=== PATIENT | male | born 1940 | race African-American/Black ===

== ENCOUNTER 2016-11-10 11:47 | Emergency (ER) | payer MEDICARE, BC ==
[2016-11-10 12:01] VITALS: BP 172/80
[2016-11-10] MEDS ORDERED: Ibuprofen TAB* 600 MG PO ONE (12:20)
--- NOTE | 2016-11-10 12:26 | UC ---
Throat Pain/Nasal Pepito HPI - HPI Summary HPI Summary: 76 year old male with complaints of chill, sore throat and body aches x 4 day. the sore throat became worse last evening. He is concerned about strep throat. He has not taken anything for his symptoms - History of Current Complaint Chief Complaint: UCRespiratory Stated Complaint: SORE THROAT BODYACHES Time Seen by Provider: 11/10/16 11:56 Hx Obtained From: Patient Onset/Duration: Sudden Onset, Lasting Days - 1, Still Present Severity: Moderate Pain Scale Used: 0-10 Numeric - 4 Cough: Nonproductive - occasional Associated Signs & Symptoms: Positive: Dysphagia, Nasal Discharge - mild, Other - chills. Negative: FB Sensation, Drooling, Wheezing, Hoarseness, Sinus Discomfort, Fever, Vomiting - Epiglottits Risk Factors Epiglottis Risk Factors: Negative - Allergies/Home Medications Allergies/Adverse Reactions: Allergies Allergy/AdvReac Type Severity Reaction Status Date / Time No Known Allergies Allergy Verified 11/10/16 11:56 Home Medications: Home Medications Meclizine TAB* [Antivert 12.5 TAB*] 11/10/16 [History] PMH/Surg Hx/FS Hx/Imm Hx Previously Healthy: Yes Endocrine History Of: Denies: Diabetes, Thyroid Disease Cardiovascular History Of: Reports: Hypertension - ON DAILY MEDS Denies: Cardiac Disorders, Pacemaker/ICD Respiratory History Of: Denies: COPD, Asthma GI/ History Of: Denies: Ulcer, Renal Disease - Surgical History Surgical History: Yes Surgery Procedure, Year, and Place: 2006 PROSTATE RESECTION STRONG. RIGHT KNEE [facility]. 1953 APPENDECTOMY. Lt & Rt CARPAL TUNNEL [facility] - Family History Known Family History: Positive: Hypertension Negative: Diabetes - Social History Occupation: Retired Lives: With Family Alcohol Use: None Alcohol Amount: 1-2 drinks daily Substance Use Type: None Smoking Status (MU): Former Smoker Type: Cigarettes Amount Used/How Often: LESS THEN 1PPD ON & OFF 10 YRS Have You Smoked in the Last Year: No When Did the Patient Quit Smoking/Using Tobacco: 1974 Review of Systems Constitutional: Chills Skin: Negative Eyes: Negative ENT: Sore Throat Respiratory: Cough - occasional Cardiovascular: Negative Gastrointestinal: Negative Genitourinary: Negative Motor: Negative Neurovascular: Negative Musculoskeletal: Negative Neurological: Negative Psychological: Negative All Other Systems Reviewed And Are Negative: Yes Physical Exam Triage Information Reviewed: Yes Appearance: No Pain Distress, Well-Nourished, Ill-Appearing - mild Vital Signs: Initial Vital Signs Temp 98.8 F 11/10/16 11:58 Pulse 67 11/10/16 11:58 Resp 16 11/10/16 11:58 BP 172/80 11/10/16 11:58 Pulse Ox 98 11/10/16 11:58 Vital Signs Reviewed: Yes Eyes: Positive: Conjunctiva Clear. Negative: Discharge ENT: Positive: Pharyngeal erythema - mild, Nasal drainage - small amount of clear post nasal mucus noted, TMs normal, Other: - no sinus pain or pressure. Negative: Nasal congestion, Tonsillar swelling Neck: Positive: Supple, Nontender Respiratory: Positive: Lungs clear, Normal breath sounds Cardiovascular: Positive: RRR, No Murmur Musculoskeletal: Positive: Strength Intact, ROM Intact Neurological: Positive: Alert, Muscle Tone Normal Psychological: Positive: Age Appropriate Behavior - pleasant and cooperative Skin: Negative: rashes, breakdown Throat Pain/Nasal Course/Dx - Course Course Of Treatment: Rapid STrep - negative. Rapid Flu - negative - Differential Dx/Diagnosis Differential Diagnosis/HQI/PQRI: Influenza, Pharyngitis, URI Provider Diagnoses: Viral illness. pharyngitis Discharge - Discharge Plan Condition: Stable Disposition: HOME Patient Education Materials: Upper Respiratory Infection (ED) Additional Instructions: Take Tylenol 650mg - 1000 mg every 6 - 8 hours as needed for pain or fever Take Ibuprofen 600mg every 6 hour as needed for pain or fever YOU MAY ALSO BENEFIT FROM OVER THE COUNTER DECONGESTANT
== END 2016-11-10 12:57 | disposition home or self-care (01) ==
LOC: UCEAST 11:47
DX: J02.9 Acute pharyngitis, unspecified (principal); B34.9 Viral infection, unspecified
CPT/HCPCS: 87502; 87651; 99212; A9270-GY; G0463

== ENCOUNTER 2016-12-28 16:19 | Emergency (ER) | payer MEDICARE, BC ==
[2016-12-28 17:28] VITALS: BP 147/90
--- NOTE | 2016-12-28 19:08 | RAD ---
Indication: Medial malleolus pain. 3 views of the right ankle demonstrates no fracture. No other bone or joint abnormality is identified. IMPRESSION: No fracture of the right ankle is noted.
--- NOTE | 2017-01-27 18:48 | UC ---
Tolu Castro Billy, scribed for Emma Eugene DO on 12/28/16 at 1751 . Lower Extremity/Ankle HPI - HPI Summary HPI Summary: Patient is a 76 year-old male coming to [facility] with constant right ankle pain and swelling. Patient is 10 days post-op after a total right knee replacement. He states that 4 days ago, he fell while using his walker, onto his outstretched left hand. He denies any additional injury or trauma to the RLE due to that fall. Pain severity 1/10 at this time when seated, but pain increases to 8/10 with weightbearing or pressure. Ankle pain is non-radiating. He states RLE swelling has improved since the surgery, but he has had some redness and warmth from the right ankle in the last several days. Patient has a follow-up appointment with the orthopedic surgeon in 3 days. - History of Current Complaint Chief Complaint: UCLowerExtremity Stated Complaint: ANKLE INJURY Time Seen by Provider: 12/28/16 17:45 Hx Obtained From: Patient Onset/Duration: Lasting Days, Still Present Severity Initially: Moderate Severity Currently: Moderate Pain Intensity: 1 Pain Scale Used: 0-10 Numeric Aggravating Factor(s): Standing, Ambulation, Other - Any applied pressure Alleviating Factor(s): Rest, Elevation, Ice, Other - Prescribed pain medication Able to Bear Weight: Yes - With walker - Allergies/Home Medications Allergies/Adverse Reactions: Allergies Allergy/AdvReac Type Severity Reaction Status Date / Time Ketorolac Tromethamine Allergy Swelling Verified 12/28/16 20:08 [From Toradol] Of Face,Lips,& Throat Lisinopril Allergy Swelling Verified 12/28/16 20:08 Of Face,Lips,& Throat Home Medications: Home Medications Diltiazem HCl [Diltiazem HCl ER] 120 mg PO 12/28/16 [History] PMH/Surg Hx/FS Hx/Imm Hx Endocrine History Of: Denies: Diabetes, Thyroid Disease Cardiovascular History Of: Reports: Hypertension - ON DAILY MEDS Denies: Cardiac Disorders, Pacemaker/ICD Respiratory History Of: Denies: COPD, Asthma GI/ History Of: Denies: Ulcer, Renal Disease - Surgical History Surgical History: Yes Surgery Procedure, Year, and Place: 2006 PROSTATE RESECTION STRONG. RIGHT KNEE [facility]. 1953 APPENDECTOMY. Lt & Rt CARPAL TUNNEL [facility]. Feb 2/17 right TKR - Family History Known Family History: Positive: Hypertension Negative: Diabetes Family History: Denies FHx of blood clots. - Social History Alcohol Use: Occasionally Alcohol Amount: 1-2 drinks daily Substance Use Type: None Smoking Status (MU): Former Smoker Type: Cigarettes Amount Used/How Often: LESS THEN 1PPD ON & OFF 10 YRS Have You Smoked in the Last Year: No When Did the Patient Quit Smoking/Using Tobacco: 1974 - Immunization History Most Recent Influenza Vaccination: Most Recent Pneumonia Vaccination: Nov 2016 Review of Systems Constitutional: Negative Skin: Other - redness and warmth right ankle Eyes: Negative ENT: Negative Respiratory: Negative Cardiovascular: Negative Gastrointestinal: Negative Genitourinary: Negative Motor: Negative Neurovascular: Negative Musculoskeletal: Arthralgia, Edema Neurological: Negative Psychological: Negative All Other Systems Reviewed And Are Negative: Yes Physical Exam Triage Information Reviewed: Yes Appearance: Well-Appearing, No Pain Distress, Well-Nourished Vital Signs: Initial Vital Signs Temp 98.2 F 12/28/16 17:16 Pulse 76 12/28/16 17:16 Resp 20 12/28/16 17:16 BP 147/90 12/28/16 17:16 Pulse Ox 100 12/28/16 17:16 Vital Signs Reviewed: Yes Eyes: Positive: Conjunctiva Clear. Negative: Discharge ENT: Positive: Hearing grossly normal. Negative: Muffled/hoarse voice Neck: Positive: Supple, Nontender Respiratory: Positive: Lungs clear, Normal breath sounds, No respiratory distress, No accessory muscle use Cardiovascular: Positive: RRR, No Murmur Musculoskeletal: Positive: Edema @ - Obviously swollen right lower extremity., Other: - Right calf tenderness. Neurological: Positive: Alert, Muscle Tone Normal Psychological: Positive: Age Appropriate Behavior Skin: Positive: Other - Discoloration to the right lower extremity, which is warm to the touch. Diagnostics - Radiology Right Ankle X-ray Xray Interpretation: No Acute Changes Radiology Interpretation Completed By: Radiologist Lower Extremity Course/Dx - Differential Dx/Diagnosis Differential Diagnosis/HQI/PQRI: DVT, Phlebitis Provider Diagnoses: r/o dvt - Physician Notifications Discussed Patient Care With: Dr. Castellanos ([facility]) @ 190: accepts transfer. Instructed by Provider To: Transfer Discharge - Discharge Plan Condition: Stable Disposition: AGAINST MEDICAL ADVICE Referrals: Mariusz Locke MD [Primary Care Provider] - The documentation as recorded by the Tolu marquez Billy accurately reflects the service I personally performed and the decisions made by me, Emma Eugene DO.
== END 2016-12-28 19:30 | disposition left against medical advice (07) ==
LOC: UCEAST 16:19
DX: M25.571 Pain in right ankle and joints of right foot (principal); Z96.651 Presence of right artificial knee joint; I10 Essential (primary) hypertension; Z88.5 Allergy status to narcotic agent; Z88.8 Allergy status to other drugs, medicaments and biological substances; Z87.891 Personal history of nicotine dependence
CPT/HCPCS: 99212; G0463

== ENCOUNTER 2016-12-28 19:52 | Emergency (ER) | payer MEDICARE, BC ==
[2016-12-28 20:13] VITALS: BP 139/77
[2016-12-28 20:56] LABS: Hematocrit 34 % (42-52); Hemoglobin 11.4 g/dl (14.0-18.0); Mean Corpuscular HGB Conc 34 g/dl (31-36); Mean Corpuscular Hemoglobin 29 pg (27-31); Mean Corpuscular Volume 85 fL (80-94); Mean Platelet Volume 8 um3 (7.4-10.4); Red Blood Count 3.98 10^6/ul (4.0-5.4); Red Cell Distribution Width 13 % (10.5-15); White Blood Count 8.8 10^3/ul (3.5-10.8)
[2016-12-28 21:12] LABS: Albumin 3.6 g/dL (3.2-5.2); BUN/Creatinine Ratio 30.6 (8-20); Calcium 9.4 mg/dL (8.6-10.3); EGFR African American 96.2 (>60); EGFR Non-African American 74.8 (>60); Globulin 3.7 g/dL (2-4); Potassium 3.8 mmol/L (3.5-5.0); Total Bilirubin 0.6 mg/dL (0.2-1.0); Total Protein 7.3 g/dL (6.4-8.9)
[2016-12-28 21:23] LABS: C Reactive Protein 25.72 mg/L (< 5.00)
--- NOTE | 2016-12-28 21:37 | RAD ---
Indication: Right leg pain. Duplex Doppler sonography of the deep venous system of the right lower extremity deep venous system was performed. Bilaterally the common femoral veins appear patent and compressible. Right proximal greater saphenous vein, proximal deep femoral vein, femoral vein, popliteal vein, posterior tibial veins and peroneal veins appear patent and compressible. IMPRESSION: NO EVIDENCE OF DEEP VENOUS THROMBOSIS IS IDENTIFIED.
--- NOTE | 2016-12-28 22:09 | ED ---
Jackie Castro Erika, scribed for Jan Nobles MD on 12/28/16 at 2103 . Lower Extremity - HPI Summary HPI Summary: Patient is a 76-year-old male presenting to the ED with a CC of RLE pain and edema. Patient had right knee replacement surgery 10 days ago in [place]. Patient notes pain in the RLE since then which has been constant and worsening. 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 Pain is aggravated by palpation, and is sharp with palpation. He also notes swelling in the leg since the surgery, which he states improves through the night, but worsens when ambulating. Pt states he has been icing and elevating the leg, and has had physical therapy. He reports that the worst pain is in the inner ankle. Patient denies fever, chills, SOB, chest pain, and abdominal pain. Patient reports that he fell on 12/24/2016, but denies known trauma directly to the leg. Patient is not on a blood thinner. Hx HTN, prostate surgery. - History of Current Complaint Chief Complaint: EDExtremityLower Stated Complaint: POSS BLOOD CLOT IN LEG/SENT FROM [facility] Time Seen by Provider: 12/28/16 20:31 Hx Obtained From: Patient, Family/Community Health Coordinator - Onset/Duration: Weeks - 10 days - since surgery Severity Initially: Mild Severity Currently: Mild Pain Intensity: 1 Pain Scale Used: 0-10 Numeric Timing: Constant Location: Is Discrete @ - RLE Character Of Pain: Sharp Associated Signs And Symptoms: Positive: Redness - and warmth to the leg Aggravating Factor(s): Ambulation Alleviating Factor(s): Elevation, Ice Able to Bear Weight: Yes - Allergies/Home Medications Allergies/Adverse Reactions: Allergies Allergy/AdvReac Type Severity Reaction Status Date / Time Ketorolac Tromethamine Allergy Swelling Verified 12/28/16 20:08 [From Toradol] Of Face,Lips,& Throat Lisinopril Allergy Swelling Verified 12/28/16 20:08 Of Face,Lips,& Throat PMH/Surg Hx/FS Hx/Imm Hx Endocrine/Hematology History: Denies: Hx Diabetes, Hx Thyroid Disease Cardiovascular History: Reports: Hx Hypertension - ON DAILY MEDS Denies: Hx Pacemaker/ICD Respiratory History: Denies: Hx Asthma, Hx Chronic Obstructive Pulmonary Disease (COPD) GI History: Denies: Hx Ulcer History: Reports: Other Problems/Disorders - 2006 Prostate removed CANCER Denies: Hx Renal Disease Musculoskeletal History: Reports: Hx Arthritis - KNEES, SHOULDER Sensory History: Reports: Hx Contacts or Glasses - GLASSES Denies: Hx Hearing Aid Opthamlomology History: Reports: Hx Contacts or Glasses - GLASSES Psychiatric History: Denies: Hx Panic Disorder - Cancer History Cancer Type, Location and Year: prostate CA Hx Chemotherapy: No Hx Radiation Therapy: No - Surgical History Surgery Procedure, Year, and Place: 2006 PROSTATE RESECTION STRONG. RIGHT KNEE [facility]. 1953 APPENDECTOMY. Lt & Rt CARPAL TUNNEL [facility]. Dec 06 right TKR Hx Anesthesia Reactions: No Infectious Disease History: No Infectious Disease History: Denies: Hx Clostridium Difficile, Hx Hepatitis, Hx Human Immunodeficiency Virus (HIV), Hx of Known/Suspected MRSA, Hx Shingles, Hx Tuberculosis, Hx Known/ Suspected VRE, Hx Known/Suspected VRSA, History Other Infectious Disease, Traveled Outside the [place] in Last 30 Days - Family History Known Family History: Positive: Hypertension Negative: Diabetes - Social History Alcohol Use: Occasionally Alcohol Amount: 1-2 drinks daily Hx Substance Use: No Substance Use Type: Reports: None Hx Tobacco Use: Yes Smoking Status (MU): Former Smoker Type: Cigarettes Amount Used/How Often: LESS THEN 1PPD ON & OFF 10 YRS Have You Smoked in the Last Year: No Review of Systems Negative: Fever, Chills Negative: Chest Pain Negative: Shortness Of Breath Negative: Abdominal Pain Positive: Edema - RLE and pain Skin: Other - redness and warmth to the RLE. surgical site RLE All Other Systems Reviewed And Are Negative: Yes Physical Exam - Summary Physical Exam Summary: The patient is well-nourished in no acute distress and in no acute pain. The skin is warm and dry and skin color reflects adequate perfusion. HEENT: The head is normocephalic and atraumatic. The pupils are equal and reactive. The conjunctivae are clear and without drainage. Nares are patent and without drainage. Mouth reveals moist mucous membranes and the throat is without erythema and exudate. The external ears are intact. The ear canals are patent and without drainage. The tympanic membranes are intact. Neck is supple with full range of motion and non-tender. There are no carotid bruits. There is no neck vein distension. Respiratory: Chest is non-tender. Lungs are clear to auscultation and breath sounds are symmetrical and equal. Cardiovascular: Hear is regular rate and rhythm. There is no murmur or rub auscultated. Pulses are symmetrical and equal. Abdomen: The abdomen is soft and non-tender. There are normal bowel sounds heard in all four quadrants and there is no organomegaly palpated. Musculoskeletal: There is no back pain noted. Extremities are non-tender with full range of motion. There is good capillary refill. RLE: warm to the touch but not hot, marked swelling, erythema in the medial aspect of the distal leg, calf tenderness, good pulses distally, good leg touch sensation, no lymphangitis , prominent veins, no apparent vericose veins, NV intact, calf muscles intact, no step off over the Achilles tendon. Dressing in place over the right knee. Neurological: Patient is alert and oriented to person, place and time. The patient has symmetrical motor strength in all four extremities. Cranial nerves are grossly intact. Deep tendon reflexes are symmetrical and equal in all four extremities. Psychiatric: The patient has an appropriate affect and does not exhibit any anxiety or depression. Triage Information Reviewed: Yes Vital Signs On Initial Exam: Initial Vitals Temp Pulse Resp BP Pulse Ox 99.4 F 84 20 139/77 100 12/28/16 20:05 12/28/16 20:05 12/28/16 20:05 12/28/16 20:05 12/28/16 20:05 Vital Signs Reviewed: Yes Diagnostics - Vital Signs Vital Signs Temp Pulse Resp BP Pulse Ox 12/28/16 20:05 99.4 F 84 20 139/77 100 - Laboratory Lab Results: Lab Results 12/28/16 12/28/16 12/28/16 Range/Units 20:50 20:50 20:50 WBC 8.8 (3.5-10.8) 10^3/ul RBC 3.98 L (4.0-5.4) 10^6/ul Hgb 11.4 L (14.0-18.0) g/dl Hct 34 L (42-52) % MCV 85 (80-94) fL MCH 29 (27-31) pg MCHC 34 (31-36) g/dl RDW 13 (10.5-15) % Plt Count 384 (150-450) 10^3/ul MPV 8 (7.4-10.4) um3 Neut % (Auto) 69.0 (38-83) % Lymph % (Auto) 21.5 L (25-47) % [place] % (Auto) 7.2 (1-9) % Eos % (Auto) 1.2 (0-6) % Baso % (Auto) 1.1 (0-2) % Absolute Neuts (auto) 6.1 (1.5-7.7) 10^3/ul Absolute Lymphs (auto) 1.9 (1.0-4.8) 10^3/ul Absolute Monos (auto) 0.6 (0-0.8) 10^3/ul Absolute Eos (auto) 0.1 (0-0.6) 10^3/ul Absolute Basos (auto) 0.1 (0-0.2) 10^3/ul Absolute Nucleated RBC 0.01 10^3/ul Nucleated RBC % 0.1 INR (Anticoag Therapy) 1.03 (0.89-1.11) Sodium 131 L (133-145) mmol/L Potassium 3.8 (3.5-5.0) mmol/L Chloride 99 L (101-111) mmol/L Carbon Dioxide 26 (22-32) mmol/L Anion Gap 6 (2-11) mmol/L BUN 30 H (6-24) mg/dL Creatinine 0.98 (0.67-1.17) mg/dL Est GFR ( Amer) 96.2 (>60) Est GFR (Non-Af Amer) 74.8 (>60) BUN/Creatinine Ratio 30.6 H (8-20) Glucose 192 H (70-100) mg/dL Calcium 9.4 (8.6-10.3) mg/dL Total Bilirubin 0.60 (0.2-1.0) mg/dL AST 20 (13-39) U/L ALT 13 (7-52) U/L Alkaline Phosphatase 67 (34-104) U/L C-Reactive Protein 25.72 H (< 5.00) mg/L Total Protein 7.3 (6.4-8.9) g/dL Albumin 3.6 (3.2-5.2) g/dL Globulin 3.7 (2-4) g/dL Albumin/Globulin Ratio 1.0 (1-3) Result Diagrams: 12/28/16 20:50 12/28/16 20:50 Lab Statement: Any lab studies that have been ordered have been reviewed, and results considered in the medical decision making process. - Ultrasound No standard instances Ultrasound Interpretation Completed By: Radiologist - US RLE - IMPRESSION: NO EVIDENCE OF DEEP VENOUS THROMBOSIS IS IDENTIFIED. Lower Extremity Course/Dx - Course Assessment/Plan: Patient is a 76 y/o M presenting to the ED to r/o DVT. He is 10 days s/p right knee replacement, and has had worsening pain and swelling in the leg since then. Venous doppler shows no DVT. Patient will be discharged home stable with follow up from his PCP and surgeon. - Diagnoses Differential Diagnosis/HQI/PQRI: Positive: Cellulitis, DVT, Other - post operative leg swelling Provider Diagnoses: Right leg swelling Discharge - Discharge Plan Condition: Stable Disposition: HOME Patient Education Materials: Knee Replacement (GEN) Referrals: Mariusz Locke MD [Primary Care Provider] - Ty Skelton MD [Medical Doctor] - The documentation as recorded by the Jackie marquez Erika accurately reflects the service I personally performed and the decisions made by , Jan Nobles MD.
== END 2016-12-28 22:38 | disposition home or self-care (01) ==
LOC: ED 19:52
DX: R60.0 Localized edema (principal); M79.604 Pain in right leg; Z87.891 Personal history of nicotine dependence; M25.571 Pain in right ankle and joints of right foot; I10 Essential (primary) hypertension; Z88.5 Allergy status to narcotic agent; Z88.8 Allergy status to other drugs, medicaments and biological substances
CPT/HCPCS: 36415; 80053; 85025; 85610; 86140; 99282

== ENCOUNTER 2017-11-28 10:08 | Emergency (ER) | payer MEDICARE, BC ==
--- NOTE | 2017-11-28 13:15 | RAD ---
INDICATION: Left shoulder pain. TECHNIQUE: 4 views of the left shoulder were obtained. FINDINGS: The bones are in normal alignment. No fracture is seen. There is mild osteoarthritic change in the glenohumeral joint. IMPRESSION: MILD OSTEOARTHRITIC CHANGE.
--- NOTE | 2017-11-28 13:30 | UC ---
Shoulder Pain HPI - HPI Summary HPI Summary: 77 yo male with sudden onset left shoulder pain while playing racket ball unable to abduct he is right handed has had left shoulder problems in the past for which he has done PT - History of Current Complaint Chief Complaint: UCUpperExtremity Stated Complaint: SHOULDER INJURY Time Seen by Provider: 11/28/17 12:39 Hx Obtained From: Patient Onset/Duration: Sudden Onset, Lasting Days Timing: Constant Severity Initially: Moderate Severity Currently: Mild Pain Intensity: 4 Pain Scale Used: 0-10 Numeric Character: Dull, Aching Aggravating Factor(s): Movement, Lifting, Abduction Alleviating Factor(s): Rest Associated Signs And Symptoms: Positive: Negative Related History: Dominant Hand Right - Allergies/Home Medications Allergies/Adverse Reactions: Allergies Allergy/AdvReac Type Severity Reaction Status Date / Time Ketorolac Tromethamine Allergy Swelling Verified 11/28/17 12:26 [From Toradol] Of Face,Lips,& Throat Lisinopril Allergy Swelling Verified 11/28/17 12:26 Of Face,Lips,& Throat PMH/Surg Hx/FS Hx/Imm Hx Previously Healthy: Yes Endocrine History: Dyslipidemia Cardiovascular History: Hypertension - Surgical History Surgical History: Yes Surgery Procedure, Year, and Place: 2006 PROSTATE RESECTION STRONG. RIGHT KNEE [facility]. 1953 APPENDECTOMY. Lt & Rt CARPAL TUNNEL [facility]. Dec 06 right TKR - Family History Known Family History: Positive: Hypertension Negative: Diabetes - Social History Alcohol Use: Daily Alcohol Amount: 1-2 drinks daily Substance Use Type: None Smoking Status (MU): Former Smoker Type: Cigarettes Amount Used/How Often: LESS THEN 1PPD ON & OFF 10 YRS Have You Smoked in the Last Year: No When Did the Patient Quit Smoking/Using Tobacco: 1974 - Immunization History Most Recent Influenza Vaccination: Most Recent Pneumonia Vaccination: Nov 2016 Review of Systems Constitutional: Negative Skin: Negative Eyes: Negative ENT: Negative Respiratory: Negative Cardiovascular: Negative Gastrointestinal: Negative Genitourinary: Negative Motor: Negative Neurovascular: Negative Musculoskeletal: Arthralgia Neurological: Negative Psychological: Negative Is Patient Immunocompromised?: No All Other Systems Reviewed And Are Negative: Yes Physical Exam Triage Information Reviewed: Yes Appearance: Well-Appearing, No Pain Distress, Well-Nourished, Thin Vital Signs: Initial Vital Signs Temp 98.8 F 01/25/18 12:28 Pulse 66 11/28/17 12:28 Resp 18 11/28/17 12:28 BP 0/0 11/28/17 12:28 Pulse Ox 95 11/28/17 12:28 Vital Signs Reviewed: Yes Eyes: Positive: Conjunctiva Clear ENT: Positive: Hearing grossly normal. Negative: Nasal drainage, TMs normal, Trismus, Muffled voice, Hoarse voice Respiratory: Positive: Lungs clear, Normal breath sounds, No respiratory distress, No accessory muscle use Cardiovascular: Positive: RRR, No Murmur Musculoskeletal: Positive: Other: - unable to abduct left shoulder >15 degrees, when left arm is passively abducted to 90 degrees he can abduct Neurological: Positive: Alert Psychological Exam: Normal Skin Exam: Normal - Additional Comments bp 156/86 Shoulder Course/Dx - Differential Dx/Diagnosis Provider Diagnoses: left shoulder injury. partial tear of rotator cuff vs rotator cuff tendonitis Discharge - Discharge Plan Condition: Stable Disposition: HOME Patient Education Materials: Tendinitis (ED) Referrals: Karla Wallace MD [Medical Doctor] - As Soon As Possible Additional Instructions: range of motion exercises as discussed this may be a tendonitis but a torn rotator cuff is possible as well aleve 1-2 twice daily with food for pain
[2017-11-28 17:34] VITALS: BP 156/87
== END 2017-11-28 13:48 | disposition home or self-care (01) ==
LOC: UCEAST 10:08
DX: S49.92XA Unspecified injury of left shoulder and upper arm, initial encounter (principal); X58.XXXA Exposure to other specified factors, initial encounter; Y93.73 Activity, racquet and hand sports; M19.012 Primary osteoarthritis, left shoulder; Z87.891 Personal history of nicotine dependence; Z88.8 Allergy status to other drugs, medicaments and biological substances
CPT/HCPCS: 99211; G0463

== ENCOUNTER 2019-06-08 19:39 | Inpatient (IN) | payer MEDICARE, OTHER ==
[2019-06-08 22:52] LABS: ABS Lymphocytes 0.6 10^3/ul (1.0-4.8); ABS Monocytes 1.3 10^3/ul (0-0.8); ABS Neutrophils 13.3 10^3/ul (1.5-7.7); Eosinophil % 0.1 %; Hematocrit 42 % (42-52); Hemoglobin 14.1 g/dL (14.0-18.0); Lymphocyte % 3.9 %; Mean Corpuscular HGB Conc 34 g/dL (31-36); Mean Corpuscular Hemoglobin 30 pg (27-31); Mean Corpuscular Volume 88 fL (80-94); Mean Platelet Volume 8.7 fL (7.4-10.4); Platelet Count 182 10^3/uL (150-450); Red Blood Count 4.74 10^6 /uL (4.18-5.48); Red Cell Distribution Width 13 % (10-15); White Blood Count 15.3 10^3/uL (3.5-10.8)
[2019-06-08 23:11] LABS: ALT 26 U/L (7-52); AST 29 U/L (13-39); Albumin/Globulin Ratio 1.5 (1-3); Alkaline Phosphatase 66 U/L (34-104); Amylase 62 U/L (29-103); Anion Gap 8 mmol/L (2-11); BUN/Creatinine Ratio 19.5 (8-20); Blood Urea Nitrogen 25 mg/dL (6-24); CO2 Carbon Dioxide 26 mmol/L (22-32); Calcium 9.4 mg/dL (8.6-10.3); Chloride 100 mmol/L (101-111); EGFR African American 66.1 (>60); EGFR Non-African American 54.6 (>60); Globulin 2.7 g/dL (2-4); Glucose 133 mg/dL (70-100); Potassium 4.1 mmol/L (3.5-5.0); Sodium 134 mmol/L (135-145); Total Protein 6.7 g/dL (6.4-8.9)
[2019-06-08 23:45] LABS: Urine Appearance Turbid; Urine Bacteria Absent (Absent); Urine Bilirubin Negative (Negative); Urine Blood 3+ (Negative); Urine Color Yellow; Urine Glucose Negative (Negative); Urine Ketones Negative (Negative); Urine Nitrite Negative (Negative); Urine Protein 2+(100 mg/dL) (Negative); Urine Red Blood Cell Trace(0-2/hpf) (Absent); Urine Specific Gravity 1.006 (1.010-1.030); Urine Urobilinogen Negative (Negative); Urine White Blood Cell 3+(>20/hpf) (Absent)
[2019-06-09] MEDS ORDERED: Piperacillin/Tazobac ADVAN(*) 3.375 GM in NS 0.9% 100 ML* 100 ML IVPB ONE (00:02)
--- NOTE | 2019-06-09 00:09 | ED ---
HPI Febrile Illness - HPI Summary HPI Summary: Pt is a 78 y/o M presenting to the ED with a chief complaint of a febrile illness. He states he exercised today and thinks he did not drink enough water, but it did not impact him until about 1600. He reports chills, a brief period of pain in his LLQ, fever at 102-103, dysuria, frequency, potentially some hematuria, and a brief period of L hip weakness. He denies CP, cough, other abd pain, dizziness, diarrhea, nausea, pruritus, and rash. - History of Current Complaint Chief Complaint: EDAbdPain Time Seen by Provider: 06/08/19 23:03 Hx Obtained From: Patient, Family/Material Liaison - Onset/Duration: Started Hours Ago, Resolved Timing: Constant, Lasting Hours Initial Severity: Moderate Current Severity: None Pain Intensity: 0 Pain Scale Used: 0-10 Numeric Aggravating Factors: Nothing Alleviating Factors: Nothing Associated Signs and Symptoms: Chills, Dysuria, Fluid Intake - decreased, Weakness - L hip - Allergy/Home Medications Allergies/Adverse Reactions: Allergies Allergy/AdvReac Type Severity Reaction Status Date / Time bee venom protein (honey bee) Allergy Intermediate Swelling Verified 06/08/19 19 :45 Of Face,Lips,& Throat ketorolac [From Toradol] Allergy Intermediate Swelling Verified 06/08/19 19:45 Of Face,Lips,& Throat lisinopril Allergy Mild Dizziness Verified 06/08/19 19:45 PMH/Surg Hx/FS Hx/Imm Hx Previously Healthy: Yes Endocrine/Hematology History: Denies: Hx Diabetes, Hx Thyroid Disease Cardiovascular History: Reports: Hx Hypertension - ON DAILY MEDS Denies: Hx Pacemaker/ICD Respiratory History: Denies: Hx Asthma, Hx Chronic Obstructive Pulmonary Disease (COPD) GI History: Denies: Hx Ulcer History: Reports: Other Problems/Disorders - 2006 Prostate removed CANCER Denies: Hx Renal Disease Musculoskeletal History: Reports: Hx Arthritis - KNEES, SHOULDER Sensory History: Reports: Hx Contacts or Glasses - GLASSES Denies: Hx Hearing Aid Opthamlomology History: Reports: Hx Contacts or Glasses - GLASSES Psychiatric History: Denies: Hx Panic Disorder - Cancer History Cancer Type, Location and Year: prostate CA Hx Chemotherapy: No Hx Radiation Therapy: No - Surgical History Surgery Procedure, Year, and Place: 2006 PROSTATE RESECTION STRONG. RIGHT KNEE [facility]. 1953 APPENDECTOMY. Lt & Rt CARPAL TUNNEL [facility]. Feb 12/21 right TKR Hx Anesthesia Reactions: No - Immunization History Date of Tetanus Vaccine: utd Date of Influenza Vaccine: fall 2015 Infectious Disease History: No Infectious Disease History: Denies: Hx Clostridium Difficile, Hx Hepatitis, Hx Human Immunodeficiency Virus (HIV), Hx of Known/Suspected MRSA, Hx Shingles, Hx Tuberculosis, Hx Known/ Suspected VRE, Hx Known/Suspected VRSA, History Other Infectious Disease, Traveled Outside the [place] in Last 30 Days - Family History Known Family History: Positive: Hypertension Negative: Diabetes - Social History Alcohol Use: Daily Alcohol Amount: 2 a day Hx Substance Use: No Substance Use Type: Reports: None Hx Tobacco Use: Yes Smoking Status (MU): Former Smoker Type: Cigarettes Amount Used/How Often: LESS THEN 1PPD ON & OFF 10 YRS Have You Smoked in the Last Year: No Review of Systems Positive: Fever, Chills Negative: Chest Pain Negative: Cough Positive: Abdominal Pain. Negative: Diarrhea, Nausea Positive: dysuria, frequency, hematuria Negative: Rash, Other - pruritus Neurological: Other - dizziness Positive: Weakness All Other Systems Reviewed And Are Negative: Yes Physical Exam - Summary Physical Exam Summary: Constitutional: Well-developed, Well-nourished, Alert. (-) Distressed Skin: Warm, Dry HENT: Normocephalic; Atraumatic Eyes: Conjunctiva normal Neck: Musculoskeletal ROM normal neck. (-) JVD, (-) Stridor, (-) Tracheal deviation Cardio: Rhythm regular, rate normal, Heart sounds normal; Intact distal pulses; The pedal pulses are 2+ and symmetric. Radial pulses are 2+ and symmetric. (-) Murmur Pulmonary/Chest wall: Effort normal. L CVA tenderness, (-) Respiratory distress , (-) Wheezes, (-) Rales Abd: Soft, (-) tenderness, (-) Distension, (-) Guarding, (-) Rebound Musculoskeletal: (-) Edema Lymph: (-) Cervical adenopathy Neuro: Alert, Oriented x3, good sensation, good strength, cranial nerves intact , nml finger to nose test Psych: Mood and affect Normal Triage Information Reviewed: Yes Vital Signs On Initial Exam: Initial Vitals Temp Pulse Resp BP Pulse Ox 100 F 95 16 137/93 95 06/08/19 19:42 06/08/19 19:42 06/08/19 19:42 06/08/19 19:42 06/08/19 19:42 Vital Signs Reviewed: Yes Diagnostics - Vital Signs Vital Signs Temp Pulse Resp BP Pulse Ox 06/08/19 23:07 69 95 06/08/19 23:05 71 124/71 95 06/08/19 21:32 98.8 F 81 16 112/81 94 06/08/19 19:42 100 F 95 16 137/93 95 - Laboratory Lab Results: Lab Results 06/08/19 06/08/19 06/08/19 Range/Units 22:46 22:46 22:46 WBC 15.3 H (3.5-10.8) 10^3/uL RBC 4.74 (4.18-5.48) 10^6 /uL Hgb 14.1 (14.0-18.0) g/dL Hct 42 (42-52) % MCV 88 (80-94) fL MCH 30 (27-31) pg MCHC 34 (31-36) g/dL RDW 13 (10-15) % Plt Count 182 (150-450) 10^3/uL MPV 8.7 (7.4-10.4) fL Neut % (Auto) 87.1 % Lymph % (Auto) 3.9 % [place] % (Auto) 8.7 % Eos % (Auto) 0.1 % Baso % (Auto) 0.2 % Absolute Neuts (auto) 13.3 H (1.5-7.7) 10^3/ul Absolute Lymphs (auto) 0.6 L (1.0-4.8) 10^3/ul Absolute Monos (auto) 1.3 H (0-0.8) 10^3/ul Absolute Eos (auto) 0.0 (0-0.6) 10^3/ul Absolute Basos (auto) 0.0 (0-0.2) 10^3/ul Absolute Nucleated RBC 0.0 10^3/ul Nucleated RBC % 0.0 Sodium 134 L (135-145) mmol/L Potassium 4.1 (3.5-5.0) mmol/L Chloride 100 L (101-111) mmol/L Carbon Dioxide 26 (22-32) mmol/L Anion Gap 8 (2-11) mmol/L BUN 25 H (6-24) mg/dL Creatinine 1.28 H (0.67-1.17) mg/dL Est GFR ( Amer) 66.1 (>60) Est GFR (Non-Af Amer) 54.6 (>60) BUN/Creatinine Ratio 19.5 (8-20) Glucose 133 H (70-100) mg/dL Lactic Acid 1.3 (0.5-2.0) mmol/L Calcium 9.4 (8.6-10.3) mg/dL Total Bilirubin 0.70 (0.2-1.0) mg/dL AST 29 (13-39) U/L ALT 26 (7-52) U/L Alkaline Phosphatase 66 (34-104) U/L Troponin I Pending C-Reactive Protein 54.80 H (<8.01) mg/L Total Protein 6.7 (6.4-8.9) g/dL Albumin 4.0 (3.2-5.2) g/dL Globulin 2.7 (2-4) g/dL Albumin/Globulin Ratio 1.5 (1-3) Amylase 62 (29-103) U/L Lipase < 10 L (11.0-82.0) U/L Urine Color Urine Appearance Urine pH (5-9) Ur Specific [place] (1.010-1.030) Urine Protein (Negative) Urine Ketones (Negative) Urine Blood (Negative) Urine Nitrate (Negative) Urine Bilirubin (Negative) Urine Urobilinogen (Negative) Ur Leukocyte Esterase (Negative) Urine WBC (Auto) (Absent) Urine RBC (Auto) (Absent) Urine Bacteria (Absent) Urine Glucose (Negative) 06/08/19 Range/Units 23:30 WBC (3.5-10.8) 10^3/uL RBC (4.18-5.48) 10^6 /uL Hgb (14.0-18.0) g/dL Hct (42-52) % MCV (80-94) fL MCH (27-31) pg MCHC (31-36) g/dL RDW (10-15) % Plt Count (150-450) 10^3/uL MPV (7.4-10.4) fL Neut % (Auto) % Lymph % (Auto) % [place] % (Auto) % Eos % (Auto) % Baso % (Auto) % Absolute Neuts (auto) (1.5-7.7) 10^3/ul Absolute Lymphs (auto) (1.0-4.8) 10^3/ul Absolute Monos (auto) (0-0.8) 10^3/ul Absolute Eos (auto) (0-0.6) 10^3/ul Absolute Basos (auto) (0-0.2) 10^3/ul Absolute Nucleated RBC 10^3/ul Nucleated RBC % Sodium (135-145) mmol/L Potassium (3.5-5.0) mmol/L Chloride (101-111) mmol/L Carbon Dioxide (22-32) mmol/L Anion Gap (2-11) mmol/L BUN (6-24) mg/dL Creatinine (0.67-1.17) mg/dL Est GFR ( Amer) (>60) Est GFR (Non-Af Amer) (>60) BUN/Creatinine Ratio (8-20) Glucose (70-100) mg/dL Lactic Acid (0.5-2.0) mmol/L Calcium (8.6-10.3) mg/dL Total Bilirubin (0.2-1.0) mg/dL AST (13-39) U/L ALT (7-52) U/L Alkaline Phosphatase (34-104) U/L Troponin I C-Reactive Protein (<8.01) mg/L Total Protein (6.4-8.9) g/dL Albumin (3.2-5.2) g/dL Globulin (2-4) g/dL Albumin/Globulin Ratio (1-3) Amylase (29-103) U/L Lipase (11.0-82.0) U/L Urine Color Yellow Urine Appearance Turbid Urine pH 6.0 (5-9) Ur Specific [place] 1.006 L (1.010-1.030) Urine Protein 2+(100 mg/dl) A (Negative) Urine Ketones Negative (Negative) Urine Blood 3+ A (Negative) Urine Nitrate Negative (Negative) Urine Bilirubin Negative (Negative) Urine Urobilinogen Negative (Negative) Ur Leukocyte Esterase 3+ A (Negative) Urine WBC (Auto) 3+(>20/hpf) A (Absent) Urine RBC (Auto) Trace(0-2/hpf) (Absent) Urine Bacteria Absent (Absent) Urine Glucose Negative (Negative) Result Diagrams: 06/08/19 22:46 06/08/19 22:46 Lab Statement: Any lab studies that have been ordered have been reviewed, and results considered in the medical decision making process. - Radiology CXR Radiology Interpretation Completed By: ED Physician Summary of Radiographic Findings: Atelectasis of the R base without obvious infiltrate, pending official radiology report. - CT CT a/p CT Interpretation Completed By: Radiologist Summary of CT Findings: 1. No hydronephrosis or stone. 2. Incomplete distension versus underlying inflammation/infection, or other infiltrative pathology, with possible wall thickening without defined mass of the urinary bladder. 3. No other acute disease seen on nonenhanced study. As Above. ED physician has reviewed this report. - EKG 1951 Cardiac Rate: NL - 87bpm EKG Rhythm: Sinus Rhythm ST Segment: Non-Specific Ectopy: None Summary of EKG Findings: EKG at 1953 shows NSR at 87bpm with normal ID, normal QRS, normal QTc, normal axis, ST elevations in v1, v2, v3, ST depression in v6, T wave inversion in v5 and v6, and overall, the EKG shows LVH. Course/Dx - Course Course Of Treatment: Pt is a 78 y/o M presenting to the ED with a chief complaint of a febrile illness. He reports chills, a brief period of pain in his LLQ, fever at 102-103, dysuria, frequency, potentially some hematuria, and a brief period of L hip weakness. He denies CP, cough, other abd pain, dizziness , diarrhea, nausea, pruritus, and rash. The pt's physical exam is normal, he has some L CVA tenderness, and his neuro exam is nml. Pts lab results show WBC of 15.3, Sodium of 134, Chloride of 100, BUN of 25, Creatinine of 1.28, CRP of 54.80, and Lipase of <10. His urine shows 2+ protein, 3+ blood, 3+ leukocyte esterase, and 3+ WBC. Pt's troponin is 0.04. EKG at 1953 shows NSR at 87bpm with normal ID, normal QRS, normal QTc, normal axis, ST elevations in v1, v2, v3 , ST depression in v6, T wave inversion in v5 and v6, and overall, the EKG shows LVH. CT a/p shows: 1. No hydronephrosis or stone. 2. Incomplete distension versus underlying inflammation/infection, or other infiltrative pathology, with possible wall thickening without defined mass of the urinary bladder. 3. No other acute disease seen on nonenhanced study. As Above. CXR shows atelectasis at the R base, without obvious infiltrate. 0152 - I spoke with Dr. Mae about the pt's present condition who [place] be [place] [facility] [place]elone[place] and elevated troponin. - Diagnoses Provider Diagnoses: Elevated troponin, Pyelonephritis - Provider Notifications Discussed Care Of Patient With: Jaya Mae Time Discussed With Above Provider: 01:52 Instructed by Provider To: Admit As Inpatient Discharge - Sign-Out/Discharge Documenting (check all that apply): Patient Departure - Discharge Plan Condition: Stable Disposition: ADMITTED TO [facility] - Billing Disposition and Condition Condition: STABLE Disposition: Admitted to [facility] - Attestation Statements Document Initiated by Scribe: Yes Documenting Scribe: Vanessa Bird Provider For Whom Scribe is Documenting (Include Credential): Rhoda Lee MD. Scribe Attestation: I, Vanessa Bird, scribed for Rhoda Ruiz MD. on 06/09/19 at 0457. Scribe Documentation Reviewed: Yes Provider Attestation: The documentation as recorded by the scribeVanessa accurately reflects the service I personally performed and the decisions made by me, Rhoda Ruiz MD. Status of Scribe Document: Viewed
[2019-06-09 00:21] LABS: Troponin I 0.04 ng/mL (<0.04)
[2019-06-09] MEDS ORDERED: Acetaminophen TAB* 325 MG PO ONE (01:20)
[2019-06-09] MEDS ORDERED: Meclizine TAB* 12.5 MG PO PRN (04:17)
[2019-06-09] MEDS ORDERED: Scopolamine 1.5 mg* PATCH TRANSDERM PRN (04:17)
[2019-06-09] MEDS ORDERED: Ondansetron TAB* 4 MG PO PRN (04:17)
[2019-06-09 04:59] LABS: Troponin I 0.04 ng/mL (<0.04)
[2019-06-09] MEDS: Heparin VIAL(*) 5000 UNITS/ML VIAL (FIVE THOUSAND) SUBCUT SCH ×3 (06:11→21:05)
--- NOTE | 2019-06-09 06:12 | HP ---
CC: Dr. Mariusz Locke * ADMISSION HISTORY AND PHYSICAL: DATE OF ADMISSION: CHIEF COMPLAINT: Fever. HISTORY OF PRESENT ILLNESS: This is a 78-year-old male with past medical history of hypertension, prostate cancer, status post prostatectomy due to fever , noted to have some chills and some weakness. He also had pain in the left flank area and fever was documented at home at 102 to 103 and accompanying dysuria, increased frequency and potentially some hematuria. He also stated that he had a brief period of left hip and leg weakness and felt like his leg was going to give out. He otherwise denies any chest pain, cough, shortness of breath, diarrhea, nausea, vomiting, any other rash. PAST MEDICAL HISTORY: 1. He has Lyme disease and since then he has been having severe vertigo intermittently. 2. He also has a history of hypertension. 3. History of prostate cancer. PAST SURGICAL HISTORY: 1. He has had an appendectomy. 2. Right knee scope later requiring a right knee replacement. 3. Left carpal tunnel release. 4. Prostate cancer surgery with the prostatectomy. HOME MEDICATIONS: The patient is currently on: 1. Scopolamine patch p.r.n. for his vertigo. 2. Zofran for nausea p.r.n. 3. Fish oil over the counter 1200 mg daily. 4. Glucosamine [id number] 500 mg orally daily. 5. Meclizine 25 mg 3 times a day p.r.n. for vertigo. 6. Aspirin 81 mg oral daily. 7. Diltiazem 120 mg oral daily. 8. Cialis 5 mg oral daily every morning. ALLERGIES: The patient is documented to be allergic to BEE VENOM, PROTEIN, KETORALAC, and LISINOPRIL. FAMILY HISTORY: Noncontributory at his age, but the patient's mother did have a heart disease, but no other medical problems in the family. SOCIAL HISTORY: The patient is retired from [employer]. He consumes about 1 to 2 alcoholic beverages per day. Denies any drug abuse. Quit smoking in 1974, but prior to that had on and off smoking a pack a day for 10 years. REVIEW OF SYSTEMS: A 14-point review of systems did not reveal any information other than what is stated in the HPI. PHYSICAL EXAMINATION GENERAL: The patient is awake, alert, oriented x3, did not appear to be in any acute distress. VITAL SIGNS: In the ER, BP was noted to be 124/69, heart rate 62, respiratory rate 20, saturating 96% on room air, temperature was documented at 100 degrees Fahrenheit max in the ER. HEAD AND NECK: Atraumatic, normocephalic. Bilateral pupils were reactive. Oral mucosa was moist. Neck supple. No jugular venous distention. HEART: S1, S2. Regular rate and rhythm. ABDOMEN: Soft, nontender, and nondistended. There was some left CVA tenderness noted. EXTREMITIES: No cyanosis, clubbing, or edema. DIAGNOSTIC STUDIES/LABORATORY DATA: CBC shows mildly elevated white count of 15.4; hemoglobin, hematocrit and platelets were within normal limits. Comprehensive metabolic panel shows minimally elevated BUN at 25, creatinine elevated at 1.28. Sodium was minimally decreased at 124. Troponin was noted to be minimally elevated at 0.04. C-reactive protein elevated at 54. Lipase and amylase were within normal limits. Urinalysis was turbid urine with 2+ protein, 3+ blood, 3+ leukocyte esterase, but negative for any nitrite. Portable chest x-ray was noted to be within normal limits. Official read by Radiology is still pending. CT abdomen and pelvis was read as no hydronephrosis or stone. Incomplete distention versus underlying inflammation/infection or other inflammatory pathology with possible wall thickening without defined mass of the urinary bladder. No other acute disease seen on nonenhanced study as above. IMPRESSION: This is a 78-year-old male with history of prostate cancer, status post prostatectomy, here due to fever and leukocytosis and tachycardia, likely all secondary to sepsis from UTI. Also, noted to have mild acute kidney injury , hyponatremia, and minimally elevated troponin. ASSESSMENT AND PLAN: 1. Sepsis secondary to urinary tract infection, possible pyelonephritis of the left flank due to the patient's symptoms; however, the patient's CAT scan was not showing any obvious pyelonephritis at this point. We will start the patient on ceftriaxone and follow up urine cultures and titrate antibiotic according to the culture result. 2. Acute kidney injury likely secondary to dehydration from urinary tract infection. We will start the patient on gentle hydration. 3. Elevated troponin, unclear etiology. The patient did not have any chest pain. An EKG done in the ER was noted to be in sinus rhythm. When compared to an old EKG from 2015, only mild change is the T-wave inversions in the V5 and V6. We will get serial troponins for now and continue the aspirin patient is already on and if the troponin trends up, we will consider an echocardiogram and possibly stress test and Cardiology consult based on that. 4. Hyponatremia, will improve with IV hydration. 5. History of vertigo. Restart home medications. 6. DVT prophylaxis with subcu heparin. [id number]/[facility] #: [id number] MTDD
[2019-06-09] MEDS: NS 0.9% 1000 ML** 1,000 ML IV SCH (06:13)
[2019-06-09] MEDS: cefTRIAXone(*) 1 GM in NS 0.9% 50 ML* 50 ML IVPB SCH (06:14)
[2019-06-09 06:42] LABS: ABS Lymphocytes 0.9 10^3/ul (1.0-4.8); ABS Neutrophils 12.3 10^3/ul (1.5-7.7); Eosinophil % 0.2 %; Hematocrit 39 % (42-52); Hemoglobin 13.5 g/dL (14.0-18.0); Mean Corpuscular HGB Conc 34 g/dL (31-36); Mean Corpuscular Hemoglobin 30 pg (27-31); Mean Corpuscular Volume 88 fL (80-94); Mean Platelet Volume 9.1 fL (7.4-10.4); Platelet Count 165 10^3/uL (150-450); Red Blood Count 4.47 10^6 /uL (4.18-5.48); Red Cell Distribution Width 13 % (10-15); White Blood Count 14.2 10^3/uL (3.5-10.8)
[2019-06-09 07:13] LABS: Troponin I 0.05 ng/mL (<0.04)
[2019-06-09] MEDS: Aspirin 81 mg CHEW TAB* 81 MG TAB.CHEW PO SCH (08:20)
[2019-06-09] MEDS: Diltiazem CD CAP* 120 MG PO SCH (08:20)
--- NOTE | 2019-06-09 11:16 | PN ---
Subjective Date of Service: 06/09/19 Interval History: Patient resting in bed on assessment with son at bedside. Reports he feels improved as he is no longer experiencing chills. Reports he continues to have left flank pain intermittently. Reports occasional increase in urination which he attributes to increase in oral intake and prostate removal. No pain or burning with urination. Objective Active Medications: Acetaminophen (Tylenol Tab*) 650 mg PO Q4H PRN PRN Reason: FEVER/PAIN Aspirin (Aspirin 81 Mg Chew Tab*) 81 mg PO DAILY [facility] Last Admin: 06/09/19 08:20 Dose: 81 mg Diltiazem HCl (Cardizem Cd Cap*) 120 mg PO DAILY [facility] Last Admin: 06/09/19 08:20 Dose: 120 mg Heparin Sodium (Porcine) (Heparin Vial(*)) 5,000 units SUBCUT Q8HR [facility] Last Admin: 06/09/19 06:11 Dose: 5,000 units Sodium Chloride (Ns 0.9% 1000 Ml) 1,000 mls @ 75 mls/hr IV PER RATE [facility] Last Admin: 06/09/19 06:13 Dose: 75 mls/hr Ceftriaxone Sodium 1 gm/ (Sodium Chloride) 50 mls @ 100 mls/hr IVPB Q24H [facility] Last Admin: 06/09/19 06:14 Dose: 100 mls/hr Meclizine HCl (Antivert Tab*) 25 mg PO TID PRN PRN Reason: DIZZINESS Ondansetron HCl (Zofran Tab*) 4 mg PO Q6H PRN PRN Reason: NAUSEA Scopolamine (Transderm-Scop 1.5 Mg Patch*) 1 patch TRANSDERM Q72HR PRN PRN Reason: DIZZINESS Vital Signs - 8 hr 06/09/19 06/09/19 06/09/19 03:35 04:00 04:05 Temperature Pulse Rate 60 62 65 Respiratory 26 31 21 Rate Blood Pressure 124/69 120/71 (mmHg) O2 Sat by Pulse 96 94 96 Oximetry 06/09/19 06/09/19 06/09/19 05:08 05:30 08:00 Temperature 99.1 F 97.7 F Pulse Rate 68 61 Respiratory 20 16 19 Rate Blood Pressure 104/56 135/62 (mmHg) O2 Sat by Pulse 95 98 Oximetry Oxygen Devices in Use Now: None Appearance: Comfortable, NAD Eyes: No Scleral Icterus Ears/Nose/Mouth/Throat: Clear Oropharnyx, Mucous Membranes Moist Neck: NL Appearance and Movements; NL JVP Respiratory: Symmetrical Chest Expansion and Respiratory Effort, Clear to Auscultation Cardiovascular: NL Sounds; No Murmurs; No JVD, RRR, No Edema Abdominal: NL Sounds; No Tenderness; No Distention Lymphatic: No Cervical Adenopathy Extremities: No Edema, No Clubbing, Cyanosis Skin: No Rash or Ulcers Neurological: Alert and Oriented x 3, NL Muscle Strength and Tone Nutrition: Taking PO's Result Diagrams: 06/09/19 06:08 06/08/19 22:46 Additional Lab and Data: Laboratory Results - last 24 hr 06/08/19 06/08/19 06/08/19 22:46 22:46 22:46 WBC 15.3 H RBC 4.74 Hgb 14.1 Hct 42 MCV 88 MCH 30 MCHC 34 RDW 13 Plt Count 182 MPV 8.7 Neut % (Auto) 87.1 Lymph % (Auto) 3.9 [place] % (Auto) 8.7 Eos % (Auto) 0.1 Baso % (Auto) 0.2 Absolute Neuts (auto) 13.3 H Absolute Lymphs (auto) 0.6 L Absolute Monos (auto) 1.3 H Absolute Eos (auto) 0.0 Absolute Basos (auto) 0.0 Absolute Nucleated RBC 0.0 Nucleated RBC % 0.0 Sodium 134 L Potassium 4.1 Chloride 100 L Carbon Dioxide 26 Anion Gap 8 BUN 25 H Creatinine 1.28 H Est GFR ( Amer) 66.1 Est GFR (Non-Af Amer) 54.6 BUN/Creatinine Ratio 19.5 Glucose 133 H Lactic Acid 1.3 Calcium 9.4 Total Bilirubin 0.70 AST 29 ALT 26 Alkaline Phosphatase 66 Troponin I 0.04 H* C-Reactive Protein 54.80 H Total Protein 6.7 Albumin 4.0 Globulin 2.7 Albumin/Globulin Ratio 1.5 Amylase 62 Lipase < 10 L Urine Color Urine Appearance Urine pH Ur Specific [place] Urine Protein Urine Ketones Urine Blood Urine Nitrate Urine Bilirubin Urine Urobilinogen Ur Leukocyte Esterase Urine WBC (Auto) Urine RBC (Auto) Urine Bacteria Urine Glucose 06/08/19 06/09/19 06/09/19 23:30 04:31 06:07 WBC RBC Hgb Hct MCV MCH MCHC RDW Plt Count MPV Neut % (Auto) Lymph % (Auto) [place] % (Auto) Eos % (Auto) Baso % (Auto) Absolute Neuts (auto) Absolute Lymphs (auto) Absolute Monos (auto) Absolute Eos (auto) Absolute Basos (auto) Absolute Nucleated RBC Nucleated RBC % Sodium Potassium Chloride Carbon Dioxide Anion Gap BUN Creatinine Est GFR ( Amer) Est GFR (Non-Af Amer) BUN/Creatinine Ratio Glucose Lactic Acid Calcium Total Bilirubin AST ALT Alkaline Phosphatase Troponin I 0.04 H* 0.05 H* C-Reactive Protein Total Protein Albumin Globulin Albumin/Globulin Ratio Amylase Lipase Urine Color Yellow Urine Appearance Turbid Urine pH 6.0 Ur Specific [place] 1.006 L Urine Protein 2+(100 mg/dl) A Urine Ketones Negative Urine Blood 3+ A Urine Nitrate Negative Urine Bilirubin Negative Urine Urobilinogen Negative Ur Leukocyte Esterase 3+ A Urine WBC (Auto) 3+(>20/hpf) A Urine RBC (Auto) Trace(0-2/hpf) Urine Bacteria Absent Urine Glucose Negative 06/09/19 06/09/19 06/09/19 06:08 10:28 13:18 WBC 14.2 H RBC 4.47 Hgb 13.5 L Hct 39 L MCV 88 MCH 30 MCHC 34 RDW 13 Plt Count 165 MPV 9.1 Neut % (Auto) 86.4 Lymph % (Auto) 6.0 [place] % (Auto) 7.1 Eos % (Auto) 0.2 Baso % (Auto) 0.3 Absolute Neuts (auto) 12.3 H Absolute Lymphs (auto) 0.9 L Absolute Monos (auto) 1.0 H Absolute Eos (auto) 0.0 Absolute Basos (auto) 0.0 Absolute Nucleated RBC 0.0 Nucleated RBC % 0.0 Sodium Potassium Chloride Carbon Dioxide Anion Gap BUN Creatinine Est GFR ( Amer) Est GFR (Non-Af Amer) BUN/Creatinine Ratio Glucose Lactic Acid Calcium Total Bilirubin AST ALT Alkaline Phosphatase Troponin I 0.07 H* 0.05 H* C-Reactive Protein Total Protein Albumin Globulin Albumin/Globulin Ratio Amylase Lipase Urine Color Urine Appearance Urine pH Ur Specific [place] Urine Protein Urine Ketones Urine Blood Urine Nitrate Urine Bilirubin Urine Urobilinogen Ur Leukocyte Esterase Urine WBC (Auto) Urine RBC (Auto) Urine Bacteria Urine Glucose Microbiology and Other Data: Microbiology 06/09/19 00:13 Aerobic Blood Culture - Preliminary Blood Venous 06/09/19 00:13 Aerobic Blood Culture - Preliminary Blood Venous Assess/Plan/Problems-Billing Assessment: 78 yr old male with pmh of lyme, htn, and prostate ca; who presented to ED with fever and chills - Patient Problems (1) Sepsis Comment: - Improving - Met sepsis criteria on admission due to elevated wbc, tachycardia, and source (urine) - BC prelim revealed gram negative bacilli - Cont Rocephin for now. ID consult requested - Awaiting urine culture (2) Urinary tract infection Comment: - Cont [place] - Awaiting urine cultures - Has left sided cva tenderness. CT has no obv signs of pyelo - ID consult requested (3) SID (acute kidney injury) Comment: - Suspected secondary to dehydration and UTI - Cont gentle IVF hydration and encourage PO - Monitor creatinine - Avoid nephro toxic meds (4) Troponin level elevated Comment: - Elevated trop with peak 0.07 then trended down - No CP or other symptoms - Prior to presentation to ED patient did regular workout of spin class with no difficulty or symptoms - No EKG changes - Suspected demand (5) Hyponatremia Comment: - 134 - Cont IVF - Cont to monitor (6) S/P prostatectomy Comment: - 3 to 4 yrs ago in [place] - Has occasional incontinence and increase in urination due to prostatectomy (7) DVT prophylaxis Comment: - Heparin Status and Disposition: Inpatient Attending: Elaine Mae
[2019-06-09 11:20] LABS: Troponin I 0.07 ng/mL (<0.04)
[2019-06-09 13:56] LABS: Troponin I 0.05 ng/mL (<0.04)
[2019-06-09] MEDS: Acetaminophen TAB* 325 MG PO PRN (18:13)
[2019-06-10] MEDS: NS 0.9% 1000 ML** 1,000 ML IV SCH ×2 (00:12→23:36)
[2019-06-10] MEDS: Heparin VIAL(*) 5000 UNITS/ML VIAL (FIVE THOUSAND) SUBCUT SCH ×3 (05:57→22:30)
[2019-06-10] MEDS: cefTRIAXone(*) 1 GM in NS 0.9% 50 ML* 50 ML IVPB SCH (05:57)
[2019-06-10 06:06] LABS: ABS Lymphocytes 0.6 10^3/ul (1.0-4.8); ABS Monocytes 1.1 10^3/ul (0-0.8); ABS Neutrophils 11.5 10^3/ul (1.5-7.7); Eosinophil % 0.1 %; Hematocrit 39 % (42-52); Lymphocyte % 4.6 %; Mean Corpuscular HGB Conc 34 g/dL (31-36); Mean Corpuscular Hemoglobin 30 pg (27-31); Mean Corpuscular Volume 89 fL (80-94); Mean Platelet Volume 8.9 fL (7.4-10.4); Platelet Count 155 10^3/uL (150-450); Red Blood Count 4.36 10^6 /uL (4.18-5.48); Red Cell Distribution Width 13 % (10-15); White Blood Count 13.3 10^3/uL (3.5-10.8)
[2019-06-10 06:20] LABS: BUN/Creatinine Ratio 19.8 (8-20); Calcium 8.4 mg/dL (8.6-10.3); EGFR African American 70.5 (>60); EGFR Non-African American 58.3 (>60)
[2019-06-10] MEDS: Diltiazem CD CAP* 120 MG PO SCH (08:47)
[2019-06-10] MEDS: Aspirin 81 mg CHEW TAB* 81 MG TAB.CHEW PO SCH (08:48)
--- NOTE | 2019-06-10 11:58 | CONS ---
CONSULTATION REPORT: DATE OF CONSULT: 06/10/19 REQUESTING PROVIDER: Phoebe Jackson NP CONSULTING SERVICE: Infectious Diseases. REASON FOR CONSULTATION: Bacteremia, urinary tract infection. IMPRESSION: 1. Escherichia coli bacteremia due to Escherichia coli left-sided pyelonephritis. 2. History of prostatectomy and increasing symptoms of urinary retention over about the last year. RECOMMENDATIONS: 1. Agree with ceftriaxone. We will await susceptibility report. We discussed that he should except ongoing fever, chills, sweats over the next 2 or 3 nights as he does have pyelonephritis. I will pl an on antibiotic therapy pending the sensitivity results. 2. Urology followup for evaluation of bladder drainage in the setting of increasing nocturia and sen sation of incomplete bladder emptying with a history of prostatectomy. Postvoid residual now may not be that accurate in the setting of the inflammation of his urinary tract infection. HISTORY OF PRESENT ILLNESS: This is a 78-year-old man with history of prostate cancer and prostatect hailey in the distant past admitted with fever, rigors, and sweats, found to have E. coli in the blood a nd urine culture and has susceptibility pending. He did also have the onset of left-sided flank pain when this started which has improved since. Last evening, he had return of fever, chills, and sweat s, but again this morning is feeling much better. He is eating, drinking, ambulating fine. He has n oted about a year in the setting of baseline nocturia and urinary frequency ever since his prostatect hailey that he now has to get up about 5 times a night to urinate and feels he is not emptying his bladd er completely and notices he has to pee more frequently than people he is golfing with. He has not h ad urinary tract infection in the past. PAST MEDICAL HISTORY: 1. Prostate cancer treated with a robotic prostatectomy. 2. History of hypertension. 3. Status post appendectomy. 4. Status post right knee arthroplasty which is asymptomatic. 5. Status post left carpal tunnel release. ALLERGIES: KETORALAC and LISINOPRIL. MEDICATIONS: 1. Tylenol. 2. Diltiazem. 3. Heparin subcutaneous injection. 4. Meclizine as needed. 5. Ceftriaxone 1 g a day. 6. Scopolamine. SOCIAL HISTORY: He lives in [place]. He is a retired former principal. FAMILY HISTORY: Mother had heart disease. REVIEW OF SYSTEMS: All negative except as noted above to 14-point review of systems. PHYSICAL EXAM: Vital Signs: Temperature 37, heart rate 70, respiratory rate 18, blood pressure 153/ 63, oxygen saturation 94% on room air. In general, he is awake, not in distress. Neurologic: He is oriented x3. Follows all commands. HEENT: There is no conjunctival hemorrhage. Oropharynx without lesions. Neck is supple without mass. Heart is regular rate and rhythm without murmurs, rubs, or g allops. Abdomen: Soft, nontender, nondistended. There are bowel sounds present. There is mild left flank tenderness to palpation. There was no suprapubic tenderness to palpation. Skin: There is no rash or splinter hemorrhage. Musculoskeletal: There is no spine tenderness to palpation or joint sy novitis. His right knee has no effusion or warmth. LABORATORY DATA: White blood cell count 13, hemoglobin 13, platelets 155. Creatinine 1.2. BUN is 24 . CRP on admission was 54. Please see impressions and recommendations outlined above. Thanks for asking me to see Mr. Herrera in consultation. [id number]/CPS #: [id number]
[2019-06-10] MEDS: Acetaminophen TAB* 325 MG PO PRN ×3 (12:35→23:32)
--- NOTE | 2019-06-10 20:17 | PN ---
Subjective Date of Service: 06/10/19 Interval History: Patient feels well today. Reports he had episode of feeling unwell and had recurrent fever last evening. Currently denies fever, chills, sob, cp, nausea, vomiting, diarrhea, back pain. Objective Active Medications: Acetaminophen (Tylenol Tab*) 650 mg PO Q4H PRN PRN Reason: FEVER/PAIN Last Admin: 06/10/19 18:24 Dose: 650 mg Aspirin (Aspirin 81 Mg Chew Tab*) 81 mg PO DAILY [facility] Last Admin: 06/10/19 08:48 Dose: 81 mg Diltiazem HCl (Cardizem Cd Cap*) 120 mg PO DAILY [facility] Last Admin: 06/10/19 08:47 Dose: 120 mg Heparin Sodium (Porcine) (Heparin Vial(*)) 5,000 units SUBCUT Q8HR [facility] Last Admin: 06/10/19 12:29 Dose: 5,000 units Sodium Chloride (Ns 0.9% 1000 Ml) 1,000 mls @ 75 mls/hr IV PER RATE [facility] Last Admin: 06/10/19 00:12 Dose: 75 mls/hr Ceftriaxone Sodium 1 gm/ (Sodium Chloride) 50 mls @ 100 mls/hr IVPB Q24H [facility] Last Admin: 06/10/19 05:57 Dose: 100 mls/hr Meclizine HCl (Antivert Tab*) 25 mg PO TID PRN PRN Reason: DIZZINESS Ondansetron HCl (Zofran Tab*) 4 mg PO Q6H PRN PRN Reason: NAUSEA Scopolamine (Transderm-Scop 1.5 Mg Patch*) 1 patch TRANSDERM Q72HR PRN PRN Reason: DIZZINESS Vital Signs - 8 hr 06/10/19 15:08 Temperature 98.3 F Pulse Rate 64 Respiratory 17 Rate Blood Pressure 140/58 (mmHg) O2 Sat by Pulse 96 Oximetry Oxygen Devices in Use Now: None Appearance: Comfortable, NAD Eyes: No Scleral Icterus Ears/Nose/Mouth/Throat: Clear Oropharnyx, Mucous Membranes Moist Neck: NL Appearance and Movements; NL JVP Respiratory: Symmetrical Chest Expansion and Respiratory Effort, Clear to Auscultation Cardiovascular: NL Sounds; No Murmurs; No JVD, RRR, No Edema Abdominal: NL Sounds; No Tenderness; No Distention, - - No CVA tenderness Lymphatic: No Cervical Adenopathy Extremities: No Edema Skin: No Rash or Ulcers Neurological: Alert and Oriented x 3, NL Muscle Strength and Tone Nutrition: Taking PO's Result Diagrams: 06/10/19 05:49 06/10/19 05:49 Additional Lab and Data: Laboratory Results - last 24 hr 06/10/19 06/10/19 05:49 05:49 WBC 13.3 H RBC 4.36 Hgb 13.0 L Hct 39 L MCV 89 MCH 30 MCHC 34 RDW 13 Plt Count 155 MPV 8.9 Neut % (Auto) 86.5 Lymph % (Auto) 4.6 Dauphin % (Auto) 8.6 Eos % (Auto) 0.1 Baso % (Auto) 0.2 Absolute Neuts (auto) 11.5 H Absolute Lymphs (auto) 0.6 L Absolute Monos (auto) 1.1 H Absolute Eos (auto) 0.0 Absolute Basos (auto) 0.0 Absolute Nucleated RBC 0.0 Nucleated RBC % 0.0 Sodium 138 Potassium 4.0 Chloride 108 Carbon Dioxide 23 Anion Gap 7 BUN 24 Creatinine 1.21 H Est GFR ( Amer) 70.5 Est GFR (Non-Af Amer) 58.3 BUN/Creatinine Ratio 19.8 Glucose 111 H Calcium 8.4 L Microbiology and Other Data: Microbiology 06/09/19 00:13 Aerobic Blood Culture - Preliminary Blood Venous Escherichia Coli Anaerobic Blood Culture - Preliminary Escherichia Coli 06/09/19 00:13 Aerobic Blood Culture - Preliminary Blood Venous Escherichia Coli Anaerobic Blood Culture - Preliminary No Growth Day 1 06/08/19 23:30 Urine Culture - Preliminary Urine Escherichia Coli Assess/Plan/Problems-Billing Assessment: 78 yr old male with pmh of lyme, htn, and prostate ca; who presented to ED with fever and chills - Patient Problems (1) Bacteremia Comment: - BC grew Escherichia Coli - Given bacteremia, ID consulting - Cont Rocephin until sensitivities result - Will need 2 wks total abx (2) Sepsis Comment: - Improving - Met sepsis criteria on admission due to elevated wbc, tachycardia, and source (urine) - BC grew Escherichia Coli. UA grew E Coli - Cont Rocephin for now. ID consulting (3) Urinary tract infection Comment: - Cont Rocpehin - Urine cultures grew Ecoli - No left sided cva tenderness today - ID consulting - Post void residual ordered. - Will need outpatient urology follow up (4) SID (acute kidney injury) Comment: - Suspected secondary to dehydration and UTI - Cont gentle IVF hydration and encourage PO - Monitor creatinine - Avoid nephro toxic meds (5) Troponin level elevated Comment: - Elevated trop with peak 0.07 then trended down - No CP or other symptoms - Prior to presentation to ED patient did regular workout of spin class with no difficulty or symptoms - No EKG changes - Suspected demand (6) Hyponatremia Comment: - Resolved now 138 - Cont IVF - Cont to monitor (7) S/P prostatectomy Comment: - 3 to 4 yrs ago in [place] - Has occasional incontinence and increase in urination due to prostatectomy (8) DVT prophylaxis Comment: - Heparin Status and Disposition: Inpatient Attending: Elaine Mae
[2019-06-11] MEDS: cefTRIAXone(*) 1 GM in NS 0.9% 50 ML* 50 ML IVPB SCH (05:47)
[2019-06-11] MEDS: Heparin VIAL(*) 5000 UNITS/ML VIAL (FIVE THOUSAND) SUBCUT SCH (05:47)
[2019-06-11] MEDS: Acetaminophen TAB* 325 MG PO PRN ×2 (05:48→12:59)
[2019-06-11 07:11] LABS: ABS Lymphocytes 0.8 10^3/ul (1.0-4.8); ABS Neutrophils 8.4 10^3/ul (1.5-7.7); Eosinophil % 0.4 %; Hematocrit 38 % (42-52); Hemoglobin 13.1 g/dL (14.0-18.0); Lymphocyte % 7.6 %; Mean Corpuscular HGB Conc 35 g/dL (31-36); Mean Corpuscular Hemoglobin 31 pg (27-31); Mean Corpuscular Volume 88 fL (80-94); Mean Platelet Volume 9.2 fL (7.4-10.4); Nucleated Red Blood Cells % 0.1; Platelet Count 164 10^3/uL (150-450); Red Blood Count 4.27 10^6 /uL (4.18-5.48); Red Cell Distribution Width 13 % (10-15); White Blood Count 10.2 10^3/uL (3.5-10.8)
[2019-06-11 07:39] LABS: BUN/Creatinine Ratio 18.3 (8-20); Calcium 8.2 mg/dL (8.6-10.3); EGFR Non-African American 69.4 (>60); Potassium 3.9 mmol/L (3.5-5.0)
--- NOTE | 2019-06-11 09:00 | PN ---
Progress Note - Progress Note Date of Service: 06/11/19 SOAP: Subjective: CC: pylenophritis HPI: 78 year old man with hx prostatectomy and rigors, left flank pain. Yesterday had more chills and sweats, not as bad. No fever, rash, or diarrhea. Flank pain is gone. Objective: Vital Signs Temp 36.9 C 06/11/19 03:30 Pulse 61 06/11/19 03:30 Resp 18 06/11/19 03:30 BP 159/70 06/11/19 03:30 Pulse Ox 95 06/11/19 03:30 Intake & Output 06/10/19 06/11/19 06/11/19 18:59 06:59 18:59 Intake Total 980 1662 Output Total 200 Balance 780 1662 Intake: IV Fluids 440 1132 NS (0.9%) 440 1132 IVPB 50 ABX - CEFTRIAXONE 50 Oral 540 480 Output: Urine 200 Gen:awake, no distress HEENT: no thrush Heart:RRR no murmur Lungs:CTA BL Abd:+BS NTND soft Skin: no rash Microbiology 06/09/19 00:13 Aerobic Blood Culture - Final Blood Venous Escherichia Coli Anaerobic Blood Culture - Preliminary No Growth Day 2 06/09/19 00:13 Aerobic Blood Culture - Final Blood Venous Escherichia Coli Anaerobic Blood Culture - Final Escherichia Coli 06/08/19 23:30 Urine Culture - Preliminary Urine Escherichia Coli Assessment: 1. Ecoli bacteremia, pyelonephritis 2. hx prostatectomy, recent incr nocturia and incomplete emptying, PVR reported as low Plan: 1. change ceftriaxone to Bactrim DS twice daily for 10 more days; fu with me 1- 1 weeks. FU with urology here or his urologist in [place] re: symptoms of decr urinary flow and worsening nocturia, possible contribution to infection risk 35 minutes floor time >50% face to face in counseling regarding expectation for continued but improving fever and follow up plans.
[2019-06-11] MEDS: Diltiazem CD CAP* 120 MG PO SCH (09:32)
[2019-06-11] MEDS: Aspirin 81 mg CHEW TAB* 81 MG TAB.CHEW PO SCH (09:32)
[2019-06-11 11:19] VITALS: BP 142/64
--- NOTE | 2019-06-11 13:51 | DS ---
CC: Dr. Locke; Dr. Bridges; Dr. Arzola; Varinder Jensen MD; Dr. Maciel Goyal * DISCHARGE SUMMARY: DATE OF ADMISSION: 06/09/19 DATE OF DISCHARGE: 06/11/19 PRIMARY CARE PROVIDER: Dr. Locke. OUTPATIENT UROLOGIST: Dr. Bridges/Dr. Arzola of [facility]. ADDITIONAL OUTPATIENT UROLOGIST: Varinder Jensen MD, Urology, [facility]. ATTENDING PHYSICIAN: Dr. Garcia* (dictated by Noelle Lozano NP) PRIMARY DIAGNOSES: 1. Bacteremia. 2. Sepsis. 3. Urinary tract infection. 4. Acute kidney injury. 5. Elevated troponin. 6. Hyponatremia. 7. Status post prostatectomy. SECONDARY DIAGNOSES: 1. History of Lyme disease. 2. Hypertension. 3. Prostate cancer. CONSULTATIONS WHILE IN THE HOSPITAL: Dr. Maciel Goyal, ID. IMAGING WHILE IN THE HOSPITAL: 1. EKG, impression: Normal sinus rhythm. 2. Abdomen/pelvic CT, impression: No hydronephrosis or stone. Incomplete distention versus underlying inflammation/infection or other infiltrative pathology, with possible wall thickening without the fine mass of urinary bladder. No other acute disease seen on nonenhanced study. 3. Chest x-ray, impression: No evidence of acute cardiopulmonary disease. DISCHARGE HOME MEDICATIONS: Continued home medications: 1. Scopolamine patch p.r.n. for vertigo. 2. Zofran for nausea p.r.n. 3. Fish oil yrqq-yiq-sqsovra 1200 mg daily. 4. Glucosamine jfuz-plj-yyeyyun 500 mg orally daily. 5. Meclizine 25 mg 2 times a day p.r.n. for vertigo. 6. Aspirin 81 mg orally daily. 7. Diltiazem 120 mg orally daily. 8. Cialis 5 mg orally daily every morning. New home medications: Bactrim DS twice a day for 10 more days. Changed home medications: No medications changed. Discontinued home medications: No home medications discontinued. HISTORY OF PRESENT ILLNESS/HOSPITAL COURSE: Mr. Herrera is a 78-year-old male with past medical history significant for hypertension, prostate cancer, status post prostatectomy; who presented to the emergency department on 06/09/19 with complaints of chills, weakness, and fever. In addition, the patient complained of left flank pain. Please see history and physical dictated by Jaya Mae MD , for complete summary of events leading up to hospitalization, but in short, the patient reported that at home, he had documented fever of 102 to 103. In addition, he had dysuria, increased frequency and above-mentioned symptoms. While in the emergency room, the patient had elevated white count, minimally elevated BUN and creatinine, hyponatremia, minimal elevation of troponin, and urine was positive for protein, blood, leukocyte esterase. Given these findings , hospitalists were asked to consult for admission. The patient was admitted to the medical floor. The patient had further imaging including the CAT scan as mentioned above. While in the emergency department, the patient did meet sepsis criteria, therefore received IV fluid bolus, started on ceftriaxone, and was pancultured. Ceftriaxone was continued while the patient was inpatient. The patient's hospital stay was complicated as his blood cultures did grow E. coli. Given this finding of E. coli in his blood and the diagnosis of bacteremia, Dr. Maciel Goyal was consulted and we very much appreciated his assistance. Dr. Goyal suspects the patient's E. coli bacteremia secondary to pyelonephritis. Given his history of prostatectomy, recent increase in nocturia, and possibly incomplete bladder emptying, a PVR was obtained. PVR was unremarkable. The patient has improved clinically while here in the hospital with IV fluids and IV antibiotics. His leukocytosis has improved. He has occasionally been febrile, but we do expect this with the diagnosis of bacteremia and pyelonephritis. He has not been hypotensive or tachycardic. The patient has clinically improved also as his urinary symptoms have improved and he is no longer experiencing left flank pain. The patient is stable for discharge home today. REVIEW OF SYSTEMS: A 14-point review of systems was completed and all were negative. PHYSICAL EXAMINATION: Vital Signs: Temp 98.4, HR 61, RR 18, O2 saturation 95% on room air, BP 150/ 70. General: Mr. Herrera is a 78-year-old male who is sitting in bed. Appears to be in no acute distress. Appears stated age. HEENT: EOMs intact. PERRLA. Oral mucosa is moist without lesion. Posterior pharynx is clear. Neck: Supple. No lymphadenopathy. Cardiac: S1, S2 present. Regular rate and rhythm. No murmurs, rubs, or gallops. Respiratory: Lungs are clear to auscultation. No wheezes, rhonchi or rales. No accessory muscle use. Good aeration. Abdomen: Soft, nontender. Bowel sounds are normoactive. No CVA tenderness. Extremities: No edema. No clubbing, cyanosis. Pedal pulses are 2+ bilaterally. Musculoskeletal: No pain or deformities. Skin: Grossly intact. Neuro: Neuro exam is grossly intact. No focal deficits or weakness. DIAGNOSTIC STUDIES/LAB DATA: WBC 10.2, hemoglobin 13.1, hematocrit 31, platelets 164. Sodium 138, potassium 3.9, chloride 110, carbon dioxide 24, BUN 19, creatinine 1.04, glucose 145. DISCHARGE PLAN/FOLLOWUP: 1. Bacteremia: The patient's blood cultures grew E. coli. It was suspected that the patient's bacteremia is secondary to pyelonephritis. ID is consulting and approved the patient to be discharged. ID recommends Bactrim DS b.i.d. x10 more days. ID would also like to see the patient in followup in 1 to 2 weeks. 2. Sepsis: The patient had sepsis on admission with an elevated white count, tachycardia, and source of urine. The patient received IV antibiotics, fluid boluses and was pancultured. The patient's sepsis improved. 3. Urinary tract infection: The patient has received Rocephin while here in the hospital. The patient's urine cultures grew E. coli. The patient initially had some left-sided CVA tenderness, which has improved. Dr. Goyal from [place] is consulting as mentioned above and would like to see this patient in followup. Postvoid residual was unremarkable. Given the patient's urinary tract infection, history of prostate cancer, history of prostatectomy, we have recommended the patient followup with Urology as an outpatient as there is concern for possible retention or other urology pathology causing urinary tract infection. The patient will decide upon [facility] or his urologist in [place]. I have CC'd both of these doctors. I have encouraged the patient to call and follow up in the next 1 to 2 weeks. 4. Acute kidney injury: Initially, the patient had an elevated creatinine on admission. This has improved and is now normalized after IV fluid hydration and p.o. hydration. 5. Elevated troponin: The patient did have an elevated troponin on admission at 0.05. His troponin was trended and peaked at 0.07 and then declined. The patient had no EKG changes. The patient had no cardiac symptoms. Prior to his admission, the patient did spin class without any difficulty or cardiac symptoms. The patient was on sinus rhythm on tele. I suspect this elevated troponin is demand ischemia given bacteremia and sepsis. If the patient has chest pain, he should to return to the emergency room. 6. Hyponatremia: The patient initially had hyponatremia on admission. This has resolved with IV fluids. 7. Status post prostatectomy: As mentioned above, the patient did have a prostatectomy in [place], possibly 3 to 4 years ago. He does have occasional incontinence with increased urination. Given his recent UTI and urinary symptoms, we have encouraged him to follow up with Urology, either [facility] or his urologist in [place]. I will leave the decision up to the patient. 8. History of Lyme disease that causes vertigo: The patient to follow up with his primary care regarding this and continue his p.r.n. medications as needed. 9. History of hypertension: The patient has been mildly hypertensive here while admitted. The patient is to continue with home medications as same. 10. Followup: The patient should follow up in 1 to [address] Maciel Goyal from Infectious Disease. I have discussed with Dr. Maciel Goyal and his office will be contacting the patient. The patient to follow up with his primary care in 1 to 3 days. The patient should follow up with Urology in 1 to 2 weeks. I have CC'd both [facility] and his [place] urologist and he may choose who he would like to follow up with. 11. Education: The patient, , and son were educated on signs and symptoms of new or worsening conditions and when to return to the emergency department. All stated understanding. This is a summarized report of a complex medical history and hospital stay. For further details, please see entire medical record. TIME SPENT: Approximately 40 minutes was spent on this discharge, greater than half that time was spent [id number] with the patient discussing discharge plans and instructions. This plan was discussed with my attending, Dr. Garcia, who is in agreement with my plan of care. Reviewed by NOELLE LOZANO NP 06/17/19 @ 1216 [id number]/CPS #: [id number]
== END 2019-06-11 13:30 | disposition home or self-care (01) | DRG 872 ==
LOC: ED 19:39 → MEDTELE 06-09 04:14
PROVIDERS: ADMIT Internal Medicine; ATTEND Internal Medicine
DX: A41.51 Sepsis due to Escherichia coli [E. coli] (principal); N17.9 Acute kidney failure, unspecified; E87.1 Hypo-osmolality and hyponatremia; E86.0 Dehydration; R79.89 Other specified abnormal findings of blood chemistry; N12 Tubulo-interstitial nephritis, not specified as acute or chronic; A69.20 Lyme disease, unspecified; I10 Essential (primary) hypertension; M19.019 Primary osteoarthritis, unspecified shoulder; Z96.651 Presence of right artificial knee joint; R42 Dizziness and giddiness; M17.12 Unilateral primary osteoarthritis, left knee; Z88.8 Allergy status to other drugs, medicaments and biological substances; Z85.46 Personal history of malignant neoplasm of prostate; Z88.6 Allergy status to analgesic agent; Z91.030 Bee allergy status; Z90.79 Acquired absence of other genital organ(s); Z82.49 Family history of ischemic heart disease and other diseases of the circulatory system; Z72.89 Other problems related to lifestyle; Z87.891 Personal history of nicotine dependence; Z79.82 Long term (current) use of aspirin
CPT/HCPCS: 36415; 71046; 74176; 80048; 80053; 81003; 81015; 82150; 83605; 83690; 84484; 85025; 86140; 87040; 87077; 87086; 87186; 87205; 93005; 99284; A9270-GY; J0696; J1644; J2543